=== PATIENT | male | born 1960 | race Caucasian/White ===

== ENCOUNTER → 2019-05-09 11:00 | Outpatient (CLI) | payer MEDICARE, MEDICAID, SELFPAY ==
--- NOTE | 2019-05-09 11:06 | XR_ITS ---
PROCEDURE: XR CHEST 2V CLINICAL HISTORY: r/o tb Evaluate for tuberculosis COMPARISON: No exams were available for comparison FINDINGS: The cardiomediastinal silhouette and pulmonary vascularity are within normal limits.There are mild atelectatic changes in the right lung base with mildly elevated right hemidiaphragm. No cavitating process.Patchy density is also present in the left lung base. No acute bony findings. IMPRESSION: Bibasilar atelectatic changes otherwise negative Dictated by: Jaime Betancourt MD 05/09/2019 11:35 Signed by: <Electronically signed by Jaime Betancourt MD in [place]> 05/09/2019 11:35
== END ==
PROVIDERS: PCP Emergency Medicine; Visit Provider Nurse Practitioner Family
DX: R76.11 Nonspecific reaction to tuberculin skin test without active tuberculosis (principal)
CPT/HCPCS: 71046

== ENCOUNTER 2020-03-02 17:46 | Inpatient (IN) | payer MEDICARE, BC, SELFPAY ==
[2020-03-02] VITALS (8 sets, daily range): BP systolic 138–166; BP diastolic 95–107; PULSE 80–116; RESP 16–24; TEMP 37.7; O2SAT 87–96; BMI 35.9
--- NOTE | 2020-03-02 17:52 | XR_ITS ---
PROCEDURE: XR CHEST PORTABLE CLINICAL HISTORY: soa Shortness of air with fever COMPARISON: XR CHEST 2V from 05/09/2019 FINDINGS: The cardiomediastinal silhouette and pulmonary vascularity are within normal limits. There are atelectatic changes in the right lower lobe. There is overall increased density of the left lung compared to the right which is in part felt to be related to technique. No acute bony abnormalities. IMPRESSION: Right lower lobe atelectasis Dictated by: Jaime Betancourt MD 03/02/2020 19:21 Electronically signed by Jaime Betancourt MD in [place] 03/02/2020 19:21
[2020-03-02 18:00] LABS: Basophils % 0.3 % (0.1-2.0); Eosinophils # 0.1 K/mm3 (0.0-0.4); Eosinophils % 2.2 % (0.1-12.0); Hematocrit 45.5 % (42.0-52.0); Hemoglobin 15.7 g/dL (14.1-18.0); Lymphocytes # 1.2 K/mm3 (0.7-4.5); Lymphocytes % 22.5 % (10-50); Mean Corpuscular HGB Conc 34.6 g/dL (31.8-35.4); Mean Corpuscular Hemoglobin 31.9 pg (27.0-31.2); Mean Corpuscular Volume 92.1 fl (80-94); Mean Platelet Volume 7.8 fl (7.4-10.4); Monocytes # 0.2 K/mm3 (0.1-1.0); Monocytes % 4.4 % (1.7-9.3); Neutrophils # 3.8 K/mm3 (1.8-7.8); Neutrophils % 70.6 % (37.0-80.0); Platelet Count 138 K/mm3 (142-424); Red Blood Count 4.94 M/mm3 (4.60-6.20); Red Cell Distribution Width 13.7 % (11.5-17.5); White Blood Count 5.3 K/mm3 (4.8-10.8)
[2020-03-02 18:01] LABS: ABG Base Excess 3.9 mmol/L (-2.4-2.3); ABG HCO3 28.7 mmhg (22.0-26.0); ABG Oxygen Saturation 90 % (90-100); ABG PCO2 46.8 mmhg (35.0-45.0); ABG PH 7.41 mmol/L (7.35-7.45); ABG PO2 57.4 mmhg (80-100); ABG TCO2 30.1 mmhg (23-27)
[2020-03-02 18:03] LABS: Allen's Test ACCEPTABLE; Oxygen RA %; Source Right Radial
[2020-03-02 18:10] LABS: Chloride 95 mmol/L (98-107); Potassium 3.7 mmoL/L (3.5-5.1); Sodium 136 mmol/L (136-145)
[2020-03-02 18:12] LABS: Blood Urea Nitrogen 10 mg/dl (9-20); Creatinine Clearance Estimated 207 mL/min (50-200); Estimated Glomerular Filt Rate 116 ml/min (>60); GFR (African American) 140 ML/MIN (>60)
[2020-03-02 18:13] LABS: Alanine Aminotransferase 57 U/L (12-78); Albumin Level 3.9 g/dl (3.5-5.0); Albumin/Globulin Ratio 1.2 (1.1-1.8); Alkaline Phosphatase 109 U/L (38-126); Anion Gap 9.7 mEq/L (5-15); Aspartate Amino Transferase 78 U/L (17-59); Bilirubin,Total 0.7 mg/dl (0.2-1.3); Calcium 8.8 mg/dl (8.4-10.2); Carbon Dioxide 35 mmol/L (22.0-30.0); Globulin 3.3 g/dL (1.3-3.2); Glucose 239 mg/dl (74-100); Total Protein,Serum 7.2 g/dl (6.3-8.2)
[2020-03-02 18:15] LABS: Lactic Acid 2.4 mmol/L (0.7-2.1)
--- NOTE | 2020-03-02 18:18 | PC.NURSE ---
notified for pt meeting criteria for severe sepsis, stated to page pharmacy for dosing of vanc and zosyn
--- NOTE | 2020-03-02 18:21 | PC.NURSE ---
Dosage given for vanc and zosyn, see mar
[2020-03-02 19:25] LABS: Coronavirus 19 IgG Antibody Negative (Negative); Coronavirus 19 IgM Antibody Negative (Negative)
[2020-03-02 19:40] LABS: Erythrocyte Sedimentation Rate 49 mm/hr (0-20)
--- NOTE | 2020-03-02 20:15 | HMH.EDGENADL ---
ED Disposition Clinical Impression: Pneumonia Qualifiers: Pneumonia type: due to unspecified organism Laterality: right Lung location: lower lobe of lung Qualified Code(s): J18.9 - Pneumonia, unspecified organism Disposition: Admitted As Inpatient Condition on Discharge: Fair Referrals: Abel Zamudio MD [Primary Care Provider] - - Critical Care Critical Care Time: No Attestation: On 03/02/20, the high probability of a clinically significant, sudden or life threatening deterioration of the following system(s) required my full and direct attention, intervention and personal management. The time I documented below is in addition to time spent performing reported procedures but includes the following listed in this critical care notation. Medical Decision Making - Dwaine Inquiry Pt receiving controlled substance: No Dwaine was queried for this patient: No Vital Signs: 03/02/20 17:46 Temperature 100 F H Temperature Source Oral Pulse Rate [Right] 116 H Respiratory Rate 24 Blood Pressure [Right Arm] 142/101 H Blood Pressure Mean [Right Arm] 114 02 Sat by Pulse Oximetry 87 L Oxygen Delivery Method Room Air - Lab Data Lab Results 03/02/20 17:50: WBC 5.3, RBC 4.94, Hgb 15.7, Hct 45.5, MCV 92.1, MCH 31.9 H, MCHC 34.6, RDW 13.7, Plt Count 138 L, MPV 7.8, Neut % (Auto) 70.6, Lymph % (Auto) 22.5, [place] % (Auto) 4.4, Eos % (Auto) 2.2, Baso % (Auto) 0.3, Neut # (Auto) 3.8, Lymph # (Auto) 1.2, [place] # (Auto) 0.2, Eos # (Auto) 0.1, Baso # (Auto) 0.0, ESR 49 H 03/02/20 17:50: Sodium 136, Potassium 3.7, Chloride 95 L, Carbon Dioxide 35 H, Anion Gap 9.7, BUN 10, Creatinine 0.70, Estimated Creat Clear 207, Estimated GFR 116, Est GFR ( Amer) 140, Glucose 239 H, Calcium 8.8, Total Bilirubin 0.7, AST 78 H, ALT 57, Alkaline Phosphatase 109, C-Reactive Protein 46.0 H, Total Protein 7.2, Albumin 3.9, Globulin 3.3 H, Albumin/Globulin Ratio 1.2 03/02/20 17:50: Lactate 2.4 H 03/02/20 17:50: SARS-CoV-2 IgG Ab (Rapid) Negative, SARS-CoV-2 IgM Ab (Rapid) Negative 03/02/20 17:57: Specimen Source Right radial, O2 % Ra, ABG pH 7.41, ABG pCO2 46.8 H, ABG pO2 57.4 L, ABG HCO3 28.7 H, ABG Total CO2 30.1 H, ABG O2 Saturation 90, ABG Base Excess 3.9 H, Jaiem Test Acceptable Result diagrams: 03/02/20 17:50 03/02/20 17:50 Orders (Tests/Meds): ED MEDICATIONS Generic Name Dose Route Start Last Admin Trade Name Freq PRN Reason Stop Dose Admin Amlodipine Besylate 5 mg 03/03/20 09:00 Norvasc 5mg Tablet PO 04/02/20 08:59 DAILY KONRAD Aripiprazole 10 mg 03/04/20 09:00 Abilify 10mg Tablet PO 04/03/20 08:59 DAILY KONRAD Piperacillin Sod/Tazobactam 100 mls @ 200 mls/hr 03/02/20 18:45 03/02/20 18:37 Sod 4.5 gm/ Sodium Chloride IV 03/16/20 18:44 200 mls/hr Q6H KONRAD Administration Protocol Vancomycin HCl 2,500 mg/ 500 mls @ 125 mls/hr 03/02/20 18:34 03/02/20 18:30 Sodium Chloride IV 03/02/20 22:33 125 mls/hr ONCE ONE Administration Protocol Vancomycin HCl 2,000 mg/ 250 mls @ 125 mls/hr 03/03/20 06:00 Sodium Chloride IV 03/17/20 05:59 Q12 KONRAD Protocol ORDERS Category Date Time Status Respiratory Panel (COVID), PCR Stat Lab 03/02/20 20:14 Received Blood Culture Stat Micro 03/02/20 17:50 Received Medical Decision Narrative: In summary patient is a nontoxic appearing 60-year-old male presenting to the emergency department for evaluation of fever, and shortness of breath. Of note patient lives in a facility that has a high incidence of the novel coronavirus. Initial evaluation patient satting 87% on room air requiring 3 L O2 to maintain sats of 93%. Patient is tachycardic, febrile. Patient is code sepsis. Given this patient given IV fluids, as well as Vanco and Zosyn off the bat. [employer] work-up initiated including CBC, CMP, lactate, EKG, chest x-ray, ESR, CRP. Patient is EKG showed normal sinus rhythm, no ST elevation, depression, or QT prolongation was noted. X
[2020-03-02 20:16] LABS: Adenovirus,PCR Not Detected (NotDetected); Bordetella Pertussis Not Detected (NotDetected); Chlamydophila Pneumoniae, PCR Not Detected (NotDetected); Coronavirus 229E Not Detected (NotDetected); Coronavirus NL63 Not Detected (NotDetected); Coronavirus OC43 Not Detected (NotDetected); Coronovirus HKU1,PCR Not Detected (NotDetected); Human Metapneumovirus Not Detected (NotDetected); Influenza A, PCR Not Detected (NotDetected); Influenza AH1, 2009 Not Detected (NotDetected); Influenza AH1, PCR Not Detected (NotDetected); Influenza AH3,PCR Not Detected (NotDetected); Influenza B, PCR Not Detected (NotDetected); Mycoplasma Pneumoniae, PCR Not Detected (NotDected); Parainfluenza 1, PCR Not Detected (NotDetected); Parainfluenza 2, PCR Not Detected (NotDetected); Parainfluenza 3, PCR Not Detected (NotDetected); Parainfluenza 4, PCR Not Detected (NotDetected); Respiratory Syncytial Virus Not Detected (NotDetected); Rhinovirus/Enterovirus Not Detected (NotDetected)
[2020-03-02 21:56] LABS: Coronavirus 19, PCR Detected (NotDetected)
[2020-03-02 21:56] LABS: Reflex Lactic Add Lactic Reflex
--- NOTE | 2020-03-02 22:00 | PC.NURSE ---
was notified that this pt is positive for covid.. notified
--- NOTE | 2020-03-02 22:45 | PC.NURSE ---
call placed family for update
--- NOTE | 2020-03-02 22:55 | PC.NURSE ---
Report received from Shyla STILL in ER @ [phone]. Call placed to warehouse helper. Waiting on warehouse helper of floor staff to let this RN leave unit to get pt.
[2020-03-02 22:56] LABS: Lactic Acid Follow Up (RFLX 1) 2.4 mmol/L (0.7-2.1)
--- NOTE | 2020-03-02 22:56 | HMH.HP ---
*Admission Date: 03/02/20 *Chief complaint: fever *History of present illness: this wm sent from local intermediate with fever and exposure to covid - had prev neg testing - pt with weakness and dec po intake - he was seen in the ed Patient is a 60-year-old male who denies any past medical history, who presents to the emergency department for evaluation of fever, and shortness of breath. Patient symptoms started yesterday with a fever of 102 degrees. Patient was noted to be hypoxic in his facility and started on oxygen. Patient has no history of COPD or CHF and has never needed oxygen before. Patient denies nausea, vomiting, chest pain, abdominal pain, or dysuria at this time. pt was admitted with covid-19 resp illness [facility] History I have reviewed the patient's past medical history: Yes *Have you ever received a pneumonia vaccine?: No *Have you received a flu vaccine this season?: Yes - *Social History Alcohol Intake: never *Occupational Status:: disabled *Travel in the last 8 weeks: None Family Hx:: No significant family history Review of Systems - Review of Systems Review of systems:: pertinent systems reviewed and negative unless documented below - Constitutional Reports fever(s), Reports weakness - Eyes Denies change in vision - ENT Reports dizziness, Reports dry mouth, Denies sore throat - *Cardiovascular Reports shortness of breath, Denies chest pain - *Respiratory Reports cough, Denies coughing up blood - *Gastrointestinal Denies abdominal pain, Denies vomiting - *Genitourinary Denies blood in urine - *Musculoskeletal Denies joint pain, Denies neck pain - Integumentary/Breasts Denies rash - *Neurologic Reports dizziness, Denies headache(s), Denies tingling/numbness/burning sensations, Denies seizure-like activity - Psychiatric Reports anxiety Meds Home Medications Medication Instructions Recorded Confirmed Type acetaminophen 500 mg tablet 1,000 mg PO Q6H PRN tab 02/22/19 03/02/20 History amlodipine 5 mg tablet 5 mg PO DAILY 02/22/19 03/02/20 History aripiprazole 10 mg tablet 10 mg PO DAILY 02/22/19 03/02/20 History divalproex 250 mg tablet,delayed 750 mg PO BID tab 02/22/19 03/02/20 History release ibuprofen 800 mg tablet 800 mg PO TID 02/22/19 03/02/20 History magnesium oxide 400 mg PO QHS cap 02/22/19 03/02/20 History multivitamin,tx-minerals 1 tab PO DAILY 02/22/19 03/02/20 History Cholecalciferol (Vitamin D3) 1,000 unit PO DAILY 03/02/20 03/02/20 History [Vitamin D3 1,000 Unit Tab] buPROPion HCL [Bupropion Xl] 150 mg PO DAILY 03/02/20 03/02/20 History Allergies Allergy/AdvReac Type Severity Reaction Status Date / Time chlorpromazine Allergy Unknown Verified 02/22/19 13:10 [From Thorazine] Exam Vital signs and Labs for Last 24 Hours: Temp Pulse Resp BP Pulse Ox 100 F H 116 H 24 142/101 H 87 L 03/02/20 17:46 03/02/20 17:46 03/02/20 17:46 03/02/20 17:46 03/02/20 17:46 Laboratory Results - last 24 hr 03/02/20 17:50: WBC 5.3, RBC 4.94, Hgb 15.7, Hct 45.5, MCV 92.1, MCH 31.9 H, MCHC 34.6, RDW 13.7, Plt Count 138 L, MPV 7.8, Neut % (Auto) 70.6, Lymph % (Auto) 22.5, [place] % (Auto) 4.4, Eos % (Auto) 2.2, Baso % (Auto) 0.3, Neut # (Auto) 3.8, Lymph # (Auto) 1.2, [place] # (Auto) 0.2, Eos # (Auto) 0.1, Baso # (Auto) 0.0, ESR 49 H 03/02/20 17:50: Sodium 136, Potassium 3.7, Chloride 95 L, Carbon Dioxide 35 H, Anion Gap 9.7, BUN 10, Creatinine 0.70, Estimated Creat Clear 207, Estimated GFR 116, Est GFR ( Amer) 140, Glucose 239 H, Calcium 8.8, Total Bilirubin 0.7, AST 78 H, ALT 57, Alkaline Phosphatase 109, C-Reactive Protein 46.0 H, Total Protein 7.2, Albumin 3.9, Globulin 3.3 H, Albumin/Globulin Ratio 1.2 03/02/20 17:50: Lactate 2.4 H 03/02/20 17:50: SARS-CoV-2 IgG Ab (Rapid) Negative, SARS-CoV-2 IgM Ab (Rapid) Negative 03/02/20 17:57: Specimen Source Right radial, O2 % Ra, ABG pH 7.41, ABG pCO2 46.8 H, ABG pO2 57.4 L, ABG HCO3 28.7 H, ABG Total CO2 30.1 H, A
--- NOTE | 2020-03-02 23:35 | PC.NURSE ---
waiting on transport to scu. 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
[2020-03-03] VITALS (9 sets, daily range): BP systolic 108–149; BP diastolic 65–109; PULSE 83–127; RESP 16–22; TEMP 36.4–38.7; O2SAT 90–96; BMI 43.5; BMI 43.4
[2020-03-03 00:20] LABS: Reflex Lactic (2 hrs) Add Lactic Reflex
[2020-03-03 00:55] LABS: Lactic Acid Follow up (RFLX 2) 1.9 mmol/L (0.7-2.1)
--- NOTE | 2020-03-03 01:09 | PC.NURSE ---
Deanne Gresham RN from ER brought pt to SCU via wheelchair at 0015.
--- NOTE | 2020-03-03 03:32 | PC.NURSE ---
Pt A&Ox4. pt is a new admit this shift. Has diminished lung bases. Pt is on 3L@NC. O2 sats between 88-92%while sleeping. 85-95% awake. pt has been tachy 110-120 remains afebrile Pt has no complaints of pain. Pt voiding per urinal. Pt has 20G RAC infusing LR @ 50 ml/hr. Also 20G LFA SL. Pt resting comfortably.
--- NOTE | 2020-03-03 06:00 | XR_ITS ---
PROCEDURE: XR CHEST PORTABLE CLINICAL HISTORY: hypoxia COMPARISON: XR CHEST 2V from 05/09/2019 XR CHEST PORTABLE from 03/02/2020 FINDINGS: The cardiomediastinal silhouette and pulmonary vascularity are within normal limits. There are low lung volumes with persistent consolidation in the right lung base. Upper lobes are clear. The consolidation in the right lung base may be slightly worse No acute bony abnormalities. IMPRESSION: Poor inspiration with low lung volumes and slight worsening right lower lobe infiltrate and/or atelectasis Dictated by: Jaime Betancourt MD 03/03/2020 07:24 Electronically signed by Jaime Betancourt MD in [place] 03/03/2020 07:24
--- NOTE | 2020-03-03 07:27 | HMH.PHAVTE ---
[facility] Pharmacy VTE Monitoring - Patient Demographics Admission date: 03/02/20 Report Date: 03/03/20 Time: 07:27 Allergies/Adverse Reactions: Patient Allergies chlorpromazine [From Thorazine] Allergy (Unknown, Verified 02/22/19 13:10) Height: 1.78 m Weight: 137.665 kg Patient Problems: Current Active Problems Pneumonia (Acute) COVID-19 virus infection (Acute) Schizoaffective disorder (Acute) Obesity (Acute) HTN (hypertension) (Acute) SIRS (systemic inflammatory response syndrome) (Acute) Elevated C-reactive protein (CRP) (Acute) Respiratory failure with hypoxia and hypercapnia (Acute) Thrombocytopenia (Acute) - VTE Risk Labs: VTE Related Lab Results Hgb 15.7 g/dL (14.1-18.0) 03/02/20 17:50 Hct 45.5 % (42.0-52.0) 03/02/20 17:50 Plt Count 138 K/mm3 (142-424) L 03/02/20 17:50 BUN 10 mg/dl (9-20) 03/02/20 17:50 Creatinine 0.70 mg/dl (0.66-1.25) 03/02/20 17:50 Estimated Creat Clear 207 mL/min (50-200) 03/02/20 17:50 Was VTE Risk Assessment Performed: Yes VTE Score: 3 VTE Risk Level: Low Risk Clinical Trial Participant: No - Prophylaxis VTE Prophylaxis Ordered?: Yes Types of VTE Prophylaxis: TEDS Knee High, Pharmacological Pharmacologic Type: Enoxaparin
--- NOTE | 2020-03-03 07:33 | HMH.PHAINT ---
HOME MEDICATION RECONCILIATION COMPLETED USING LIST FROM [facility]
[2020-03-03 07:40] LABS: Eosinophils # 0.1 K/mm3 (0.0-0.4); Neutrophils # 3.8 K/mm3 (1.8-7.8); White Blood Count 5.3 K/mm3 (4.8-10.8)
[2020-03-03 07:43] LABS: Chloride 96 mmol/L (98-107); Sodium 134 mmol/L (136-145)
[2020-03-03 07:45] LABS: Basophils % 0.4 % (0.1-2.0); Hemoglobin 13.5 g/dL (14.1-18.0); Lymphocytes # 1.1 K/mm3 (0.7-4.5); Lymphocytes % 20.2 % (10-50); Mean Corpuscular HGB Conc 33.8 g/dL (31.8-35.4); Mean Corpuscular Hemoglobin 31.2 pg (27.0-31.2); Mean Corpuscular Volume 92.4 fl (80-94); Mean Platelet Volume 8.7 fl (7.4-10.4); Monocytes # 0.3 K/mm3 (0.1-1.0); Monocytes % 6.4 % (1.7-9.3); Neutrophils % 71.9 % (37.0-80.0); Platelet Count 124 K/mm3 (142-424); Red Blood Count 4.34 M/mm3 (4.60-6.20)
[2020-03-03 07:46] LABS: Blood Urea Nitrogen 10 mg/dl (9-20); Carbon Dioxide 35 mmol/L (22.0-30.0); Creatinine Clearance Estimated 104 mL/min (50-200); Estimated Glomerular Filt Rate 99 ml/min (>60); GFR (African American) 120 ML/MIN (>60); Glucose 181 mg/dl (74-100)
[2020-03-03 07:56] LABS: Calcium 7.9 mg/dl (8.4-10.2)
--- NOTE | 2020-03-03 10:02 | HMH.PHACONS ---
- Pharmacy Consult Date: 03/03/20 Time: 10:02 Referring provider: DR. OTOOLE Reason for Consult:: VANCOMYCIN DOSING Allergies and ADEs:: Allergies Allergy/AdvReac Type Severity Reaction Status Date / Time chlorpromazine Allergy Unknown Verified 02/22/19 13:10 [From Thorazine] Home Medications:: Home Medications Medication Instructions Recorded Confirmed Type acetaminophen 500 mg tablet 1,000 mg PO Q6H PRN tab 02/22/19 03/02/20 History amlodipine 5 mg tablet 5 mg PO DAILY 02/22/19 03/02/20 History aripiprazole 10 mg tablet 10 mg PO DAILY 02/22/19 03/02/20 History divalproex 250 mg tablet,delayed 750 mg PO BID tab 02/22/19 03/02/20 History release ibuprofen 800 mg tablet 800 mg PO TID 02/22/19 03/02/20 History magnesium oxide 400 mg PO BID cap 02/22/19 03/03/20 History multivitamin,tx-minerals 1 tab PO DAILY 02/22/19 03/02/20 History Cholecalciferol (Vitamin D3) 1,000 unit PO DAILY 03/02/20 03/02/20 History [Vitamin D3 1,000 Unit Tab] buPROPion HCL [Bupropion Xl] 150 mg PO DAILY 03/02/20 03/02/20 History Height: 1.78 m Weight: 137.665 kg Laboratory Results:: Laboratory Results - last 24 hr 03/02/20 17:50: WBC 5.3, RBC 4.94, Hgb 15.7, Hct 45.5, MCV 92.1, MCH 31.9 H, MCHC 34.6, RDW 13.7, Plt Count 138 L, MPV 7.8, Neut % (Auto) 70.6, Lymph % (Auto) 22.5, [place] % (Auto) 4.4, Eos % (Auto) 2.2, Baso % (Auto) 0.3, Neut # (Auto) 3.8, Lymph # (Auto) 1.2, [place] # (Auto) 0.2, Eos # (Auto) 0.1, Baso # (Auto) 0.0, ESR 49 H 03/02/20 17:50: Sodium 136, Potassium 3.7, Chloride 95 L, Carbon Dioxide 35 H, Anion Gap 9.7, BUN 10, Creatinine 0.70, Estimated Creat Clear 207, Estimated GFR 116, Est GFR ( Amer) 140, Glucose 239 H, Calcium 8.8, Total Bilirubin 0.7, AST 78 H, ALT 57, Alkaline Phosphatase 109, C-Reactive Protein 46.0 H, Total Protein 7.2, Albumin 3.9, Globulin 3.3 H, Albumin/Globulin Ratio 1.2 03/02/20 17:50: Lactate 2.4 H 03/02/20 17:50: SARS-CoV-2 IgG Ab (Rapid) Negative, SARS-CoV-2 IgM Ab (Rapid) Negative 03/02/20 17:57: Specimen Source Right radial, O2 % Ra, ABG pH 7.41, ABG pCO2 46.8 H, ABG pO2 57.4 L, ABG HCO3 28.7 H, ABG Total CO2 30.1 H, ABG O2 Saturation 90, ABG Base Excess 3.9 H, Jaime Test Acceptable 03/02/20 20:14: Chlamy pneumoniae PCR Not detected, Adenovirus (PCR) Not detected, B. pertussis DNA (PCR) Not detected, Coronavirus OC43 (PCR) Not detected, Coronavirus HKU1 (PCR) Not detected, Coronavirus 229E (PCR) Not detected, COVID-19 PCR Detected A, Coronavirus NL63 (PCR) Not detected, Human Metapneumovir PCR Not detected, Influenza A (H1) PCR Not detected, Influ A (H1N1/09) PCR Not detected, Influenza A (H3) PCR Not detected, Influenza Type A (PCR) Not detected, Influenza Type B (PCR) Not detected, M. pneumoniae (PCR) Not detected, Parainfluenza 1 (PCR) Not detected, Parainfluenza 2 (PCR) Not detected, Parainfluenza 3 (PCR) Not detected, Parainfluenza 4 (PCR) Not detected, RSV (PCR) Not detected, Entero/Rhino (PCR) Not detected 03/02/20 22:15: Lactate 2.4 H 03/03/20 00:31: Lactate 1.9 03/03/20 05:04: WBC 5.3, RBC 4.34 L, Hgb 13.5 L D, Hct 40.0 L, MCV 92.4, MCH 31.2, MCHC 33.8, RDW 14.0, Plt Count 124 L, MPV 8.7, Neut % (Auto) 71.9, Lymph % (Auto) 20.2, [place] % (Auto) 6.4, Eos % (Auto) 1.0, Baso % (Auto) 0.4, Neut # (Auto) 3.8, Lymph # (Auto) 1.1, [place] # (Auto) 0.3, Eos # (Auto) 0.1, Baso # (Auto) 0.0 03/03/20 05:04: Sodium 134 L, Potassium 4.0, Chloride 96 L, Carbon Dioxide 35 H, Anion Gap 7.0, BUN 10, Creatinine 0.80, Estimated Creat Clear 104, Estimated GFR 99, Est GFR ( Amer) 120, Glucose 181 H D, Calcium 7.9 L D Medical History: Reports:: Hypertension Denies:: Cancer, Diabetes Mellitus Type 1, Diabetes Mellitus Type 2, Internal Pacemaker Assessment and Plan (1) COVID-19 virus infection Current visit: Yes Status: Acute Category: Medical Code(s): U07.1 - COVID-19 (2) Schizoaffective disorder Current visit: Yes Status: Acute Qualifiers: Schizoaffective disorder type: unspecified Q
--- NOTE | 2020-03-03 12:03 | HMH.ACPN2 ---
Internal Medicine - PN: Subj *Date: 03/03/20 *Time: 08:15 Interval history: 60 YOM i bed resp easy/even oxygen saturation 94% on 3 L per nasal cannula. He denies any concerns/needs at this time Exam Vital signs and Labs for Last 24 Hours: Temp Pulse Resp BP Pulse Ox 99.6 F 111 H 22 144/93 H 93 L 03/03/20 04:00 03/03/20 04:00 03/03/20 04:00 03/03/20 04:00 03/03/20 04:00 Laboratory Results - last 24 hr 03/02/20 17:50: WBC 5.3, RBC 4.94, Hgb 15.7, Hct 45.5, MCV 92.1, MCH 31.9 H, MCHC 34.6, RDW 13.7, Plt Count 138 L, MPV 7.8, Neut % (Auto) 70.6, Lymph % (Auto) 22.5, [place] % (Auto) 4.4, Eos % (Auto) 2.2, Baso % (Auto) 0.3, Neut # (Auto) 3.8, Lymph # (Auto) 1.2, [place] # (Auto) 0.2, Eos # (Auto) 0.1, Baso # (Auto) 0.0, ESR 49 H 03/02/20 17:50: Sodium 136, Potassium 3.7, Chloride 95 L, Carbon Dioxide 35 H, Anion Gap 9.7, BUN 10, Creatinine 0.70, Estimated Creat Clear 207, Estimated GFR 116, Est GFR ( Amer) 140, Glucose 239 H, Calcium 8.8, Total Bilirubin 0.7, AST 78 H, ALT 57, Alkaline Phosphatase 109, C-Reactive Protein 46.0 H, Total Protein 7.2, Albumin 3.9, Globulin 3.3 H, Albumin/Globulin Ratio 1.2 03/02/20 17:50: Lactate 2.4 H 03/02/20 17:50: SARS-CoV-2 IgG Ab (Rapid) Negative, SARS-CoV-2 IgM Ab (Rapid) Negative 03/02/20 17:57: Specimen Source Right radial, O2 % Ra, ABG pH 7.41, ABG pCO2 46.8 H, ABG pO2 57.4 L, ABG HCO3 28.7 H, ABG Total CO2 30.1 H, ABG O2 Saturation 90, ABG Base Excess 3.9 H, Jaime Test Acceptable 03/02/20 20:14: Chlamy pneumoniae PCR Not detected, Adenovirus (PCR) Not detected, B. pertussis DNA (PCR) Not detected, Coronavirus OC43 (PCR) Not detected, Coronavirus HKU1 (PCR) Not detected, Coronavirus 229E (PCR) Not detected, COVID-19 PCR Detected A, Coronavirus NL63 (PCR) Not detected, Human Metapneumovir PCR Not detected, Influenza A (H1) PCR Not detected, Influ A (H1N1/09) PCR Not detected, Influenza A (H3) PCR Not detected, Influenza Type A (PCR) Not detected, Influenza Type B (PCR) Not detected, M. pneumoniae (PCR) Not detected, Parainfluenza 1 (PCR) Not detected, Parainfluenza 2 (PCR) Not detected, Parainfluenza 3 (PCR) Not detected, Parainfluenza 4 (PCR) Not detected, RSV (PCR) Not detected, Entero/Rhino (PCR) Not detected 03/02/20 22:15: Lactate 2.4 H 03/03/20 00:31: Lactate 1.9 03/03/20 05:04: WBC 5.3, RBC 4.34 L, Hgb 13.5 L D, Hct 40.0 L, MCV 92.4, MCH 31.2, MCHC 33.8, RDW 14.0, Plt Count 124 L, MPV 8.7, Neut % (Auto) 71.9, Lymph % (Auto) 20.2, [place] % (Auto) 6.4, Eos % (Auto) 1.0, Baso % (Auto) 0.4, Neut # (Auto) 3.8, Lymph # (Auto) 1.1, [place] # (Auto) 0.3, Eos # (Auto) 0.1, Baso # (Auto) 0.0 03/03/20 05:04: Sodium 134 L, Potassium 4.0, Chloride 96 L, Carbon Dioxide 35 H, Anion Gap 7.0, BUN 10, Creatinine 0.80, Estimated Creat Clear 104, Estimated GFR 99, Est GFR ( Amer) 120, Glucose 181 H D, Calcium 7.9 L D I & O for Last 24 hours: Intake & Output 02/29/20 03/01/20 03/02/20 03/03/20 23:59 23:59 23:59 23:59 Intake Total 3597 / 3597 Output Total 150 / 150 Balance 3447 / 3447 Weight 280 lb 303 lb 8 oz - Constitutional no acute distress, obese - *Routine HEENT Exam Head: Present: normocephalic ENT: Present: mucous membranes moist. Absent: sinus tenderness - *Routine Neck Exam Present: full ROM, trachea midline. Absent: JVD, tracheal deviation - *Routine Respiratory Exam Present: decreased breath sounds. Absent: accessory muscle use - *Routine Cardiovascular Exam Present: RRR, murmur - *Routine Abdominal Exam Present: soft, normoactive bowel sounds, obese. Absent: tenderness - *Routine Skin Exam Present: intact, warm. Absent: cyanosis, jaundice - *Routine Neurological Exam Present: alert, oriented X3 - Routine Psychiatric Exam Present: normal affect Assessment and Plan (1) COVID-19 virus infection Current visit: Yes Status: Acute Category: Medical Code(s): U07.1 - COVID-19 (2) Schizoaffective disorder Current visit: Yes Status: Acute
--- NOTE | 2020-03-03 15:04 | PC.NURSE ---
PATIENT A&O X4, LUNGS DIMINISHED WITH EXPIRATORY RHONCHI, PULSES EQUAL. PATIENT IS IMPULSIVE WHEN NEEDING TO USE THE URINAL. THIS RN HAS EDUCATED PATIENT IN REGARDS TO SAFETY TO USE CALL LIGHT FOR ASSISTANCE. PATIENT VERBALIZED AN UNDERSTANDING BUT CONTINUES TO GET OUT OF BED TO USE URINAL. PATIENT IS UNSTEADY ON HIS FEET. THIS RN PERFORMED A BED BATH ON PATIENT. LINENS CHANGED, NEW GOWN, ORAL CARE PROVIDED. NO OTHER NEEDS AT THIS TIME.
--- NOTE | 2020-03-03 20:21 | PC.NURSE ---
nurse was made aware of blood pressure and temperature
[2020-03-04] VITALS (8 sets, daily range): BP systolic 99–143; BP diastolic 69–91; PULSE 88–112; RESP 18–22; TEMP 36.6–37.8; O2SAT 85–97; BMI 43.1
--- NOTE | 2020-03-04 04:32 | PC.NURSE ---
Pt is A&Ox3 and has ambulated to the BSC and to the side of the bed 3x this shift and tolerated fair d/t SOA with exertion. Pt continues on 1L of O2 per NC with sats 91-94% while awake and 89-91% during sleep. Room air sat obtained this am of 85%. Diminished lungs sounds noted t/o. Pt has had an occasional dry cough. Pt has denied any pain or N/V/D t/o shift. ABD is soft, large, non-tender with active BS. Pt has 1 episode of loose stool on previous shift. Lovenox for VTE. Pt was febrile t/o most of the shift with T-max of 101.6; new orders from Dr. Billy for Ibuprofen. Temp decreased and is currently 98.2. Pt has been tachycardic t/o shift, HR reached as high as 125 but this was noted during ambulation. with temp decreased, HR currently 94 and pt resting quietly in bed. Pt has continues to have urinary incontinence. Pt reports difficulty uses the urinal. Pt encouraged to use the BS however pt continues to urinate in the floor. Pt has been given a partial bath and linen change. Call light within reach, will continue to monitor.
[2020-03-04 04:34] LABS: Basophils % 0.8 % (0.1-2.0); Eosinophils % 0.7 % (0.1-12.0); Hematocrit 40.6 % (42.0-52.0); Hemoglobin 13.6 g/dL (14.1-18.0); Lymphocytes # 1.2 K/mm3 (0.7-4.5); Lymphocytes % 24.8 % (10-50); Mean Corpuscular HGB Conc 33.6 g/dL (31.8-35.4); Mean Corpuscular Hemoglobin 31.4 pg (27.0-31.2); Mean Corpuscular Volume 93.5 fl (80-94); Mean Platelet Volume 8.2 fl (7.4-10.4); Monocytes # 0.3 K/mm3 (0.1-1.0); Monocytes % 5.9 % (1.7-9.3); Neutrophils # 3.2 K/mm3 (1.8-7.8); Neutrophils % 67.9 % (37.0-80.0); Platelet Count 116 K/mm3 (142-424); Red Blood Count 4.34 M/mm3 (4.60-6.20); Red Cell Distribution Width 13.7 % (11.5-17.5); White Blood Count 4.7 K/mm3 (4.8-10.8)
[2020-03-04 04:37] LABS: Chloride 98 mmol/L (98-107); Potassium 3.7 mmoL/L (3.5-5.1); Sodium 139 mmol/L (136-145)
[2020-03-04 04:40] LABS: Blood Urea Nitrogen 10 mg/dl (9-20); Creatinine Clearance Estimated 76 mL/min (50-200); Estimated Glomerular Filt Rate 69 ml/min (>60); GFR (African American) 83 ML/MIN (>60)
[2020-03-04 04:41] LABS: Anion Gap 7.7 mEq/L (5-15); Calcium 7.9 mg/dl (8.4-10.2); Carbon Dioxide 37 mmol/L (22.0-30.0); Glucose 154 mg/dl (74-100)
[2020-03-04 04:59] LABS: Vancomycin,Trough 12.1 ug/mL (5.0-10.0)
--- NOTE | 2020-03-04 04:59 | PC.NURSE ---
Pt's o2 while asleep has decreased to 84%, o2 increased to 2L per NC. Pt also awakened and completely pulmonary toilet. Sat currently at 90% on 2L
--- NOTE | 2020-03-04 08:41 | HMH.ACPN2 ---
Internal Medicine - PN: Subj *Date: 03/04/20 *Time: 08:50 Interval history: 82-year-old male patient lying in bed resting quietly respirations easy even, denies any chest pain or shortness of breath. Currently oxygen saturations 93% on 2 L per nasal cannula Exam Vital signs and Labs for Last 24 Hours: Temp Pulse Resp BP Pulse Ox 98.2 F 96 H 20 99/69 L 94 L 03/04/20 03:44 03/04/20 03:44 03/04/20 03:44 03/04/20 03:44 03/04/20 08:00 Laboratory Results - last 24 hr 03/04/20 04:10: WBC 4.7 L, RBC 4.34 L, Hgb 13.6 L, Hct 40.6 L, MCV 93.5, MCH 31.4 H, MCHC 33.6, RDW 13.7, Plt Count 116 L, MPV 8.2, Neut % (Auto) 67.9, Lymph % (Auto) 24.8, [place] % (Auto) 5.9, Eos % (Auto) 0.7, Baso % (Auto) 0.8, Neut # (Auto) 3.2, Lymph # (Auto) 1.2, [place] # (Auto) 0.3, Eos # (Auto) 0.0, Baso # (Auto) 0.0 03/04/20 04:10: Sodium 139, Potassium 3.7, Chloride 98, Carbon Dioxide 37 H, Anion Gap 7.7, BUN 10, Creatinine 1.10 D, Estimated Creat Clear 76, Estimated GFR 69, Est GFR ( Amer) 83 D, Glucose 154 H, Calcium 7.9 L 03/04/20 04:10: Vancomycin Trough 12.1 H I & O for Last 24 hours: Intake & Output 03/01/20 03/02/20 03/03/20 03/04/20 23:59 23:59 23:59 23:59 Intake Total 4722 / 4722 Output Total 1500 / 1500 250 / 250 Balance 3222 / 3222 -250 / -250 Weight 280 lb 303 lb 7.99 oz 301 lb 6 oz - Constitutional no acute distress - *Routine HEENT Exam Head: Present: normocephalic Eye: Present: EOMI ENT: Present: mucous membranes moist. Absent: sinus tenderness - *Routine Neck Exam Present: full ROM, trachea midline. Absent: JVD, tracheal deviation - *Routine Respiratory Exam Present: decreased breath sounds. Absent: accessory muscle use - *Routine Cardiovascular Exam Present: RRR, murmur - *Routine Abdominal Exam Present: soft, normoactive bowel sounds. Absent: tenderness - *Routine Extremities Exam Present: full ROM, pulses intact. Absent: calf tenderness - *Routine Skin Exam Present: intact, warm. Absent: jaundice - *Routine Neurological Exam Present: alert - Routine Psychiatric Exam Present: normal affect Assessment and Plan (1) COVID-19 virus infection Current visit: Yes Status: Acute Category: Medical Code(s): U07.1 - COVID-19 (2) Schizoaffective disorder Current visit: Yes Status: Acute Qualifiers: Schizoaffective disorder type: unspecified Qualified Code(s): F25.9 - Schizoaffective disorder, unspecified Category: Medical Code(s): F25.9 - Schizoaffective disorder, unspecified (3) Obesity Current visit: Yes Status: Acute Qualifiers: Obesity type: due to excess calories Obesity classification: adult class 3 (BMI >= 40) Serious obesity comorbidity presence: with serious comorbidity Body mass index: BMI 40.0-44.9 Qualified Code(s): E66.01 - Morbid (severe) obesity due to excess calories; Z68.41 - Body mass index (BMI) 40.0-44.9, adult Category: Medical Code(s): E66.9 - Obesity, unspecified (4) HTN (hypertension) Current visit: Yes Status: Acute Qualifiers: Hypertension type: essential hypertension Qualified Code(s): I10 - Essential (primary) hypertension Category: Medical Code(s): I10 - Essential (primary) hypertension (5) SIRS (systemic inflammatory response syndrome) Current visit: Yes Status: Acute Category: Medical Code(s): R65.10 - Systemic inflammatory response syndrome (SIRS) of non-infectious origin without acute organ dysfunction (6) Elevated C-reactive protein (CRP) Current visit: Yes Status: Acute Category: Medical Code(s): R79.82 - Elevated C-reactive protein (CRP) (7) Respiratory failure with hypoxia and hypercapnia Current visit: Yes Status: Acute Category: Medical Code(s): J96.91 - Respiratory failure, unspecified with hypoxia; J96.92 - Respiratory failure, unspecified with hypercapnia (8) Thrombocytopenia Current visit: Yes Status: Acute Category: Medical Code(s): D6
--- NOTE | 2020-03-04 14:21 | PC.NURSE ---
PT UNABLE TO PRODUCE SPUTUM SAMPLE FOR LAB AT THIS TIME
--- NOTE | 2020-03-04 18:14 | PC.NURSE ---
ALERT AND ORIENTED X3. O2 SAT CONTINUE TO BE 90-92% ON 1.5LNC. NO DISTRESS NOTED. VSS. PT DENIES PAIN AND NO COMPLAINTS VOICED. PT USES BSC INDEPENDENTLY AND HAS SPENT MOST OF SHIFT RESTING IN BED. SAFETY MEASURES IN PLACE, WILL CONTINUE TO MONITOR. PT REMAINS IN NEGATIVE PRESSURE ROOM AND ON CONTACT/AIR[place]/EYEPROTECTION PRECAUTIONS ALL SHIFT
--- NOTE | 2020-03-04 20:22 | PC.NURSE ---
He is A&Ox4. Continues on 1LPM n/c. Denies pain. Denies SOA. Is lying in bed watching television. Is in contact and airborne precautions.
[2020-03-05] VITALS (9 sets, daily range): BP systolic 108–163; BP diastolic 64–96; PULSE 76–112; RESP 20–32; TEMP 36.2–38.9; O2SAT 85–95; BMI 43.9
[2020-03-05 05:26] LABS: Chloride 95 mmol/L (98-107); Potassium 3.6 mmoL/L (3.5-5.1); Sodium 136 mmol/L (136-145)
[2020-03-05 05:29] LABS: Anion Gap 6.6 mEq/L (5-15); Blood Urea Nitrogen 12 mg/dl (9-20); Calcium 7.7 mg/dl (8.4-10.2); Carbon Dioxide 38 mmol/L (22.0-30.0); Creatinine Clearance Estimated 55 mL/min (50-200); Estimated Glomerular Filt Rate 48 ml/min (>60); GFR (African American) 58 ML/MIN (>60); Glucose 134 mg/dl (74-100)
[2020-03-05 06:06] LABS: Hematocrit 37.2 % (42.0-52.0); Hemoglobin 12.5 g/dL (14.1-18.0); Mean Corpuscular Volume 94.5 fl (80-94); Red Blood Count 3.94 M/mm3 (4.60-6.20); White Blood Count 4.8 K/mm3 (4.8-10.8)
[2020-03-05 06:07] LABS: Basophils # 0.1 K/mm3 (0-0.2); Basophils % 1.1 % (0.1-2.0); Eosinophils % 0.4 % (0.1-12.0); Lymphocytes # 0.9 K/mm3 (0.7-4.5); Lymphocytes % 19.2 % (10-50); Mean Corpuscular HGB Conc 33.7 g/dL (31.8-35.4); Mean Corpuscular Hemoglobin 31.8 pg (27.0-31.2); Mean Platelet Volume 7.6 fl (7.4-10.4); Monocytes # 0.3 K/mm3 (0.1-1.0); Monocytes % 5.2 % (1.7-9.3); Neutrophils # 3.5 K/mm3 (1.8-7.8); Neutrophils % 74.2 % (37.0-80.0); Platelet Count 133 K/mm3 (142-424); Red Cell Distribution Width 13.4 % (11.5-17.5)
--- NOTE | 2020-03-05 07:58 | HMH.ACPN2 ---
Internal Medicine - PN: Subj *Date: 03/05/20 *Time: 10:31 Interval history: 60-year-old male patient sitting up the side of bed, tolerating breakfast without any difficulties. Temperature this morning was 102.1, he is currently on 1 L per nasal cannula with oxygen saturations of 93%. We will start Remdisivir today Exam Vital signs and Labs for Last 24 Hours: Temp Pulse Resp BP Pulse Ox 100.0 F H 112 H 22 159/93 H 92 L 03/05/20 06:45 03/05/20 04:00 03/05/20 04:00 03/05/20 04:00 03/05/20 04:00 Laboratory Results - last 24 hr 03/05/20 04:34: WBC 4.8, RBC 3.94 L, Hgb 12.5 L, Hct 37.2 L, MCV 94.5 H, MCH 31.8 H, MCHC 33.7, RDW 13.4, Plt Count 133 L, MPV 7.6, Neut % (Auto) 74.2, Lymph % (Auto) 19.2, [place] % (Auto) 5.2, Eos % (Auto) 0.4, Baso % (Auto) 1.1, Neut # (Auto) 3.5, Lymph # (Auto) 0.9, [place] # (Auto) 0.3, Eos # (Auto) 0.0, Baso # (Auto) 0.1 03/05/20 04:34: Sodium 136, Potassium 3.6, Chloride 95 L, Carbon Dioxide 38 H, Anion Gap 6.6, BUN 12, Creatinine 1.50 H D, Estimated Creat Clear 55, Estimated GFR 48 L, Est GFR ( Amer) 58 L D, Glucose 134 H, Calcium 7.7 L I & O for Last 24 hours: Intake & Output 03/02/20 03/03/20 03/04/20 03/05/20 23:59 23:59 23:59 23:59 Intake Total 4722 / 4722 1810 / 1810 Output Total 1500 / 1500 250 / 250 200 / 200 Balance 3222 / 3222 1560 / 1560 -200 / -200 Weight 280 lb 303 lb 7.99 oz 301 lb 6 oz 306 lb 9 oz Microbiology Reports for the Last 24 Hours: Microbiology 03/02/20 17:50 Blood Blood Culture - Preliminary NO GROWTH AFTER 48 HOURS 03/02/20 17:50 Blood Blood Culture - Preliminary NO GROWTH AFTER 48 HOURS - Constitutional no acute distress - *Routine HEENT Exam ENT: Present: mucous membranes moist. Absent: sinus tenderness - *Routine Neck Exam Present: full ROM, trachea midline. Absent: JVD - *Routine Respiratory Exam Present: decreased breath sounds - *Routine Cardiovascular Exam Present: RRR, murmur - *Routine Abdominal Exam Present: soft, normoactive bowel sounds, obese. Absent: tenderness, firm - *Routine Extremities Exam Present: full ROM, pulses intact, calf tenderness - Routine Back/Spine/Pelvis Exam Back/Spine: Present: full ROM. Absent: CVA tenderness - *Routine Skin Exam Present: intact, dry, warm. Absent: cyanosis - *Routine Neurological Exam Present: alert - Routine Psychiatric Exam Present: normal affect Assessment and Plan (1) COVID-19 virus infection Current visit: Yes Status: Acute Category: Medical Code(s): U07.1 - COVID-19 (2) Schizoaffective disorder Current visit: Yes Status: Acute Qualifiers: Schizoaffective disorder type: unspecified Qualified Code(s): F25.9 - Schizoaffective disorder, unspecified Category: Medical Code(s): F25.9 - Schizoaffective disorder, unspecified (3) Obesity Current visit: Yes Status: Acute Qualifiers: Obesity type: due to excess calories Obesity classification: adult class 3 (BMI >= 40) Serious obesity comorbidity presence: with serious comorbidity Body mass index: BMI 40.0-44.9 Qualified Code(s): E66.01 - Morbid (severe) obesity due to excess calories; Z68.41 - Body mass index (BMI) 40.0-44.9, adult Category: Medical Code(s): E66.9 - Obesity, unspecified (4) HTN (hypertension) Current visit: Yes Status: Acute Qualifiers: Hypertension type: essential hypertension Qualified Code(s): I10 - Essential (primary) hypertension Category: Medical Code(s): I10 - Essential (primary) hypertension (5) SIRS (systemic inflammatory response syndrome) Current visit: Yes Status: Acute Category: Medical Code(s): R65.10 - Systemic inflammatory response syndrome (SIRS) of non-infectious origin without acute organ dysfunction (6) Elevated C-reactive protein (CRP) Current visit: Yes Status: Acute Category: Medical Code(s): R79.82 - Elevated C-reactiv
--- NOTE | 2020-03-05 09:19 | PC.NURSE ---
educated and gave patient information sheet on the remdesivir an investigational drug and its use in coronavirus treatment.
--- NOTE | 2020-03-05 09:50 | PC.NURSE ---
remdesivir finished and flushed for 30ml/hr of ns. also spoke with legal guardian of patient about the medication
--- NOTE | 2020-03-05 09:52 | PC.NURSE ---
spoke with patient sister/legal guardian about her concern of wanting patient placed somewhere closer to her in [place]. relayed patient sister information to care management. sister also states she will fax legal guardian paperwork
--- NOTE | 2020-03-05 10:35 | XR_ITS ---
PROCEDURE: XR CHEST PORTABLE CLINICAL HISTORY: SOA Shortness of air and cough COMPARISON: XR CHEST 2V from 05/09/2019 XR CHEST PORTABLE from 03/02/2020 XR CHEST PORTABLE from 03/03/2020 FINDINGS: The cardiomediastinal silhouette and pulmonary vascularity are within normal limits. There is elevated right hemidiaphragm with consolidation in the right lung base and possible small right effusion. Questionable atelectatic changes versus patchy infiltrate also noted in the left lung base. No acute bony findings. IMPRESSION: Right lower lobe pneumonia and/or atelectatic change with small effusion with questionable atelectasis or infiltrate in the left lung base Dictated by: Jaime Betancourt MD 03/05/2020 13:11 Electronically signed by Jaime Betancourt MD in [facility] 03/05/2020 13:11
--- NOTE | 2020-03-05 14:31 | PC.NURSE ---
on room air patient sats are 85%. requiring 3l of o2 to be at 91%
--- NOTE | 2020-03-05 17:08 | PC.NURSE ---
Pt has been febrile with Tmax 101.6 po. He reports not feeling bad, hot or SOA. O2 sats mid 80s on RA. He started out on 1.5L NC at beginning of shift. Liter flow increased to 3L cont via NC before noon for low O2 sat and dyspnea. RR 20-32 with labored breaths and abd breathing. He has no complaints. Has been tachy most of shift with HR 100-115. Bilateral lungs clear this morning but diminished this afternoon. CXR completed today which revealed new RLL pneumonia. Right AC IV discontinued and right hand IV inserted. Has LR infusing @ 50mL/hr. Was started on Remdesivir today without issues. Has had 3 loose BMs this shift. Had 1 episode of stool incontinence that resulted in a complete bed change and bath. He is able to get OOB without assistance and make it to BSC most times. Will use urinal prn. Has refused all food today. Will drink water with meds.
[2020-03-06] VITALS (7 sets, daily range): BP systolic 121–147; BP diastolic 81–88; PULSE 78–90; RESP 18–24; TEMP 36.5–36.8; O2SAT 82–96; BMI 43.3
--- NOTE | 2020-03-06 04:54 | PC.NURSE ---
Pt slept in long intervals this shift. No complaints reported to staff. Afebrile throughout the shift. Pt did desat multiple times while sleeping into low 80's on 3LNC. This RN repositioned pt's HOB to semi-fowlers and had pt use IS w/ come effectiveness. O2 increased to 4LNC while asleep w/ sats between 91%-95%. Pt has no complaints of SOA. RA sat of 82% at rest. Pt has been using BSC independently. No issues voiding and pt did have a small, formed BM this shift. Tolerating IV ABX. LR infusing per MAR. IS best of !000 this shift. Will continue to monitor.
[2020-03-06 06:54] LABS: Basophils % 0.2 % (0.1-2.0); Eosinophils # 0.1 K/mm3 (0.0-0.4); Eosinophils % 1.4 % (0.1-12.0); Hematocrit 35.7 % (42.0-52.0); Hemoglobin 11.9 g/dL (14.1-18.0); Lymphocytes # 1.1 K/mm3 (0.7-4.5); Lymphocytes % 33.3 % (10-50); Mean Corpuscular HGB Conc 33.3 g/dL (31.8-35.4); Mean Corpuscular Hemoglobin 31.5 pg (27.0-31.2); Mean Corpuscular Volume 94.5 fl (80-94); Mean Platelet Volume 7.7 fl (7.4-10.4); Monocytes # 0.2 K/mm3 (0.1-1.0); Monocytes % 6.4 % (1.7-9.3); Neutrophils % 58.6 % (37.0-80.0); Platelet Count 112 K/mm3 (142-424); Red Blood Count 3.77 M/mm3 (4.60-6.20); Red Cell Distribution Width 13.7 % (11.5-17.5); White Blood Count 3.4 K/mm3 (4.8-10.8)
[2020-03-06 07:16] LABS: Chloride 97 mmol/L (98-107); Potassium 3.4 mmoL/L (3.5-5.1); Sodium 137 mmol/L (136-145)
[2020-03-06 07:19] LABS: Blood Urea Nitrogen 13 mg/dl (9-20); Creatinine Clearance Estimated 64 mL/min (50-200); Estimated Glomerular Filt Rate 57 ml/min (>60); GFR (African American) 69 ML/MIN (>60)
[2020-03-06 07:20] LABS: Anion Gap 5.4 mEq/L (5-15); Calcium 7.3 mg/dl (8.4-10.2); Carbon Dioxide 38 mmol/L (22.0-30.0); Glucose 110 mg/dl (74-100)
--- NOTE | 2020-03-06 07:45 | HMH.ACPN ---
Internal Medicine - PN: Subj *Date: 03/06/20 *Time: 07:45 Exam Vital signs and Labs for Last 24 Hours: Temp Pulse Resp BP Pulse Ox 98.3 F 78 24 147/88 H 82 L 03/06/20 03:41 03/06/20 03:41 03/06/20 03:41 03/06/20 03:41 03/06/20 03:56 Laboratory Results - last 24 hr 03/06/20 06:25: WBC 3.4 L D, RBC 3.77 L, Hgb 11.9 L, Hct 35.7 L, MCV 94.5 H, MCH 31.5 H, MCHC 33.3, RDW 13.7, Plt Count 112 L, MPV 7.7, Neut % (Auto) 58.6, Lymph % (Auto) 33.3, [place] % (Auto) 6.4, Eos % (Auto) 1.4, Baso % (Auto) 0.2, Neut # (Auto) 2.0, Lymph # (Auto) 1.1, [place] # (Auto) 0.2, Eos # (Auto) 0.1, Baso # (Auto) 0.0 03/06/20 06:25: Sodium 137, Potassium 3.4 L, Chloride 97 L, Carbon Dioxide 38 H, Anion Gap 5.4, BUN 13, Creatinine 1.30 H, Estimated Creat Clear 64, Estimated GFR 57 L, Est GFR ( Amer) 69, Glucose 110 H, Calcium 7.3 L I & O for Last 24 hours: Intake & Output 03/03/20 03/04/20 03/05/20 03/06/20 23:59 23:59 23:59 23:59 Intake Total 4722 / 4722 1810 / 1810 1466 / 1466 Output Total 1500 / 1500 250 / 250 200 / 200 801 / 801 Balance 3222 / 3222 1560 / 1560 1266 / 1266 -801 / -801 Weight 137.665 kg 136.701 kg 139.054 kg 137.438 kg Assessment and Plan (1) COVID-19 virus infection Current visit: Yes Status: Acute Category: Medical Code(s): U07.1 - COVID-19 (2) Schizoaffective disorder Current visit: Yes Status: Acute Qualifiers: Schizoaffective disorder type: unspecified Qualified Code(s): F25.9 - Schizoaffective disorder, unspecified Category: Medical Code(s): F25.9 - Schizoaffective disorder, unspecified (3) Obesity Current visit: Yes Status: Acute Qualifiers: Obesity type: due to excess calories Obesity classification: adult class 3 (BMI >= 40) Serious obesity comorbidity presence: with serious comorbidity Body mass index: BMI 40.0-44.9 Qualified Code(s): E66.01 - Morbid (severe) obesity due to excess calories; Z68.41 - Body mass index (BMI) 40.0-44.9, adult Category: Medical Code(s): E66.9 - Obesity, unspecified (4) HTN (hypertension) Current visit: Yes Status: Acute Qualifiers: Hypertension type: essential hypertension Qualified Code(s): I10 - Essential (primary) hypertension Category: Medical Code(s): I10 - Essential (primary) hypertension (5) SIRS (systemic inflammatory response syndrome) Current visit: Yes Status: Acute Category: Medical Code(s): R65.10 - Systemic inflammatory response syndrome (SIRS) of non-infectious origin without acute organ dysfunction (6) Elevated C-reactive protein (CRP) Current visit: Yes Status: Acute Category: Medical Code(s): R79.82 - Elevated C-reactive protein (CRP) (7) Respiratory failure with hypoxia and hypercapnia Current visit: Yes Status: Acute Category: Medical Code(s): J96.91 - Respiratory failure, unspecified with hypoxia; J96.92 - Respiratory failure, unspecified with hypercapnia (8) Thrombocytopenia Current visit: Yes Status: Acute Category: Medical Code(s): D69.6 - Thrombocytopenia, unspecified (9) Pneumonia Start date: 03/02/20 (COVID-19) Current visit: Yes Status: Acute Qualifiers: Pneumonia type: due to unspecified organism Laterality: right Lung location: lower lobe of lung Qualified Code(s): J18.9 - Pneumonia, unspecified organism Category: Medical Code(s): J18.9 - Pneumonia, unspecified organism The patient's infection will respond to the chosen ABx?: Yes Is the patient receiving the right drug, dose, and route?: Yes Could a more targeted ABx be ordered?: No
--- NOTE | 2020-03-06 08:24 | HMH.ACPN2 ---
Internal Medicine - PN: Subj *Date: 03/06/20 *Time: 08:24 Interval history: Patient rested comfortably overnight, continues to have a minimal oxygen requirement. Ate breakfast well. Otherwise has no complaints. Exam Vital signs and Labs for Last 24 Hours: Temp Pulse Resp BP Pulse Ox 97.9 F 88 22 121/81 96 03/06/20 08:00 03/06/20 08:00 03/06/20 08:00 03/06/20 08:00 03/06/20 08:00 Laboratory Results - last 24 hr 03/06/20 06:25: WBC 3.4 L D, RBC 3.77 L, Hgb 11.9 L, Hct 35.7 L, MCV 94.5 H, MCH 31.5 H, MCHC 33.3, RDW 13.7, Plt Count 112 L, MPV 7.7, Neut % (Auto) 58.6, Lymph % (Auto) 33.3, [place] % (Auto) 6.4, Eos % (Auto) 1.4, Baso % (Auto) 0.2, Neut # (Auto) 2.0, Lymph # (Auto) 1.1, [place] # (Auto) 0.2, Eos # (Auto) 0.1, Baso # (Auto) 0.0 03/06/20 06:25: Sodium 137, Potassium 3.4 L, Chloride 97 L, Carbon Dioxide 38 H, Anion Gap 5.4, BUN 13, Creatinine 1.30 H, Estimated Creat Clear 64, Estimated GFR 57 L, Est GFR ( Amer) 69, Glucose 110 H, Calcium 7.3 L I & O for Last 24 hours: Intake & Output 03/03/20 03/04/20 03/05/20 03/06/20 11:59 11:59 11:59 11:59 Intake Total 3597 / 3597 1605 / 1605 1450 / 1450 1706 / 1706 Output Total 150 / 150 1600 / 1600 200 / 200 801 / 801 Balance 3447 / 3447 5 / 5 1250 / 1250 905 / 905 Weight 303 lb 8 oz 301 lb 6 oz 306 lb 9 oz 303 lb - Constitutional no acute distress, morbidly obese - *Routine HEENT Exam Head: Present: normocephalic - *Routine Neck Exam Present: supple. Absent: lymphadenopathy - *Routine Respiratory Exam Present: rhonchi Comments: And right base - *Routine Cardiovascular Exam Present: RRR - *Routine Abdominal Exam Present: soft, normoactive bowel sounds. Absent: tenderness - *Routine Extremities Exam Absent: cyanosis, clubbing, edema - *Routine Skin Exam Present: warm. Absent: rash - *Routine Neurological Exam Present: alert, oriented X3 Assessment and Plan (1) COVID-19 virus infection Current visit: Yes Status: Acute Category: Medical Code(s): U07.1 - COVID-19 (2) Schizoaffective disorder Current visit: Yes Status: Acute Qualifiers: Schizoaffective disorder type: unspecified Qualified Code(s): F25.9 - Schizoaffective disorder, unspecified Category: Medical Code(s): F25.9 - Schizoaffective disorder, unspecified (3) Obesity Current visit: Yes Status: Acute Qualifiers: Obesity type: due to excess calories Obesity classification: adult class 3 (BMI >= 40) Serious obesity comorbidity presence: with serious comorbidity Body mass index: BMI 40.0-44.9 Qualified Code(s): E66.01 - Morbid (severe) obesity due to excess calories; Z68.41 - Body mass index (BMI) 40.0-44.9, adult Category: Medical Code(s): E66.9 - Obesity, unspecified (4) HTN (hypertension) Current visit: Yes Status: Acute Qualifiers: Hypertension type: essential hypertension Qualified Code(s): I10 - Essential (primary) hypertension Category: Medical Code(s): I10 - Essential (primary) hypertension (5) SIRS (systemic inflammatory response syndrome) Current visit: Yes Status: Acute Category: Medical Code(s): R65.10 - Systemic inflammatory response syndrome (SIRS) of non-infectious origin without acute organ dysfunction (6) Elevated C-reactive protein (CRP) Current visit: Yes Status: Acute Category: Medical Code(s): R79.82 - Elevated C-reactive protein (CRP) (7) Respiratory failure with hypoxia and hypercapnia Current visit: Yes Status: Acute Category: Medical Code(s): J96.91 - Respiratory failure, unspecified with hypoxia; J96.92 - Respiratory failure, unspecified with hypercapnia (8) Thrombocytopenia Current visit: Yes Status: Acute Category: Medical Code(s): D69.6 - Thrombocytopenia, unspecified (9) Pneumonia Start date: 03/02/20 (COVID-19) Current visit: Yes Status: Acute Qualifiers: Pneumonia type: due to unspecified organism Laterality:
--- NOTE | 2020-03-06 13:56 | SW/DCPLANNER ---
SENT A PACKET OF PATIENT INFORMATION TO [facility] TO SEE IF THIS PATIENT IS A CANDIDATE FOR THEIR SKILLED CARE UNIT... PATIENT PRESENTED INTO [facility] FROM [facility] WITH COVID19... PATIENT CURRENTLY IS RECEIVING 4 LPM NASAL 02 AND HAS BEEN FEBRILE... DR SCHROEDER STATED IF HE CAN BE AFEBRILE FOR 24 HRS AND HIS 02 CAN BE MANAGED AT 2 LPM PER NASAL CANNULA HE CAN GO [facility]...WAITING TO HEAR BACK TO SEE IF ACCEPTED...
--- NOTE | 2020-03-06 16:28 | PC.NURSE ---
Patient has rested well this shift, remains on 4LNC, lung sounds reveal scattered rhonchi t/o, perrla, alert and oriented x3, abd soft and nontender, active bowel sounds in all quads, appetite fair, has been up on side of bed for a short period of time this shift, has slept on and off for most of the day, complete bed bath given with linen change, vital signs remain stable, has been afebrile for all of shift, no s/s of distress noted, will continue to monitor.
--- NOTE | 2020-03-06 19:35 | PC.NURSE ---
Pt sats 93-95% on 4 LPM via NC, titrated O2 down to 3LMP. Current sat 94%, pt denies any SOA or dyspnea. will continue to monitor.
[2020-03-07] VITALS (15 sets, daily range): BP systolic 129–167; BP diastolic 88–102; PULSE 86–96; RESP 20–24; TEMP 36.4–37.1; O2SAT 88–95
--- NOTE | 2020-03-07 02:25 | PC.NURSE ---
Pt maintaining sats 93-95% on 3LPM of O2, titrated O2 down to 2LPM, current sat 92%. Pt is resting well. Will continue to monitor.
--- NOTE | 2020-03-07 04:30 | PC.NURSE ---
Pt is A&O and has ambulated independently several times to the BS and tolerated well. Pt has denied any SOA and no labored breathing noted t/o shift. Lungs diminished with scattered rhonchi. Pt has been weaned down to 2LPM O2 via NC with sats 92-95%. Room air sat this shift was 88%. Pt remained afebrile t/o shift. 2 soft/loose BM's this shift. Pt has denied any N/V. Active BS x4 quads, ABD is soft & non-tender. Lovenx for VTE. IS completed several times during shift and pt's max was 1,000ml. VSS, call light within reach, will continue to monitor.
[2020-03-07 05:45] LABS: Basophils % 0.3 % (0.1-2.0); Eosinophils # 0.1 K/mm3 (0.0-0.4); Eosinophils % 2.7 % (0.1-12.0); Hematocrit 34.5 % (42.0-52.0); Hemoglobin 11.4 g/dL (14.1-18.0); Lymphocytes # 1.1 K/mm3 (0.7-4.5); Lymphocytes % 34.3 % (10-50); Mean Corpuscular Hemoglobin 30.4 pg (27.0-31.2); Mean Corpuscular Volume 92.1 fl (80-94); Monocytes # 0.2 K/mm3 (0.1-1.0); Monocytes % 5.5 % (1.7-9.3); Neutrophils # 1.8 K/mm3 (1.8-7.8); Neutrophils % 57.1 % (37.0-80.0); Platelet Count 129 K/mm3 (142-424); Red Blood Count 3.74 M/mm3 (4.60-6.20); Red Cell Distribution Width 13.6 % (11.5-17.5); White Blood Count 3.1 K/mm3 (4.8-10.8)
[2020-03-07 06:00] LABS: Blood Urea Nitrogen 12 mg/dl (9-20); Chloride 95 mmol/L (98-107); Creatinine Clearance Estimated 64 mL/min (50-200); Estimated Glomerular Filt Rate 57 ml/min (>60); GFR (African American) 69 ML/MIN (>60); Glucose 115 mg/dl (74-100); Potassium 3.2 mmoL/L (3.5-5.1); Sodium 140 mmol/L (136-145)
[2020-03-07 06:09] LABS: Anion Gap 8.2 mEq/L (5-15); Calcium 8.1 mg/dl (8.4-10.2); Carbon Dioxide 40 mmol/L (22.0-30.0)
--- NOTE | 2020-03-07 06:55 | PC.NURSE ---
@ 0620 pt's O2 was titrated down to 1LPM via NC. Sats 92-94%.
--- NOTE | 2020-03-07 08:41 | HMH.ACPN2 ---
Internal Medicine - PN: Subj *Date: 03/07/20 *Time: 08:41 Interval history: Patient has done exceedingly well over the last 24 hours. He is been weaned down to room air and has been on room air for the past couple of hours with no distress. He reports that he is feeling better, will eat breakfast this morning. Nurses report this patient's been able to ambulate, go to the restroom by himself and do all of his activities of daily living. He has been afebrile for 48 hours. Exam Vital signs and Labs for Last 24 Hours: Temp Pulse Resp BP Pulse Ox 98.2 F 96 H 20 129/93 H 91 L 03/07/20 08:00 03/07/20 08:00 03/07/20 08:23 03/07/20 08:00 03/07/20 08:23 Laboratory Results - last 24 hr 03/07/20 04:50: WBC 3.1 L, RBC 3.74 L, Hgb 11.4 L, Hct 34.5 L, MCV 92.1, MCH 30.4, MCHC 33.0, RDW 13.6, Plt Count 129 L, MPV 8.0, Neut % (Auto) 57.1, Lymph % (Auto) 34.3, [place] % (Auto) 5.5, Eos % (Auto) 2.7, Baso % (Auto) 0.3, Neut # (Auto) 1.8, Lymph # (Auto) 1.1, [place] # (Auto) 0.2, Eos # (Auto) 0.1, Baso # (Auto) 0.0 03/07/20 04:50: Sodium 140, Potassium 3.2 L, Chloride 95 L, Carbon Dioxide 40 H, Anion Gap 8.2, BUN 12, Creatinine 1.30 H, Estimated Creat Clear 64, Estimated GFR 57 L, Est GFR ( Amer) 69, Glucose 115 H, Calcium 8.1 L D I & O for Last 24 hours: Intake & Output 03/04/20 03/05/20 03/06/20 03/07/20 11:59 11:59 11:59 11:59 Intake Total 1605 / 1605 1450 / 1450 1706 / 1706 3337 / 3337 Output Total 1600 / 1600 200 / 200 801 / 801 3303 / 3303 Balance 1250 / 1250 905 / 905 34 / 34 Weight 301 lb 6 oz 306 lb 9 oz 303 lb Narrative: Patient is pleasant, talkative, oriented x2 which is his baseline. Lungs have good air movement bilaterally. Minimal rhonchi but improving. Obesity limits his exam but abdomen is soft and nontender. He has no clubbing or cyanosis or edema. Heart rate regular. ENT exam clear. Neurologic exam nonfocal. Rash Assessment and Plan (1) COVID-19 virus infection Current visit: Yes Status: Acute Category: Medical Code(s): U07.1 - COVID-19 (2) Schizoaffective disorder Current visit: Yes Status: Acute Qualifiers: Schizoaffective disorder type: unspecified Qualified Code(s): F25.9 - Schizoaffective disorder, unspecified Category: Medical Code(s): F25.9 - Schizoaffective disorder, unspecified (3) Obesity Current visit: Yes Status: Acute Qualifiers: Obesity type: due to excess calories Obesity classification: adult class 3 (BMI >= 40) Serious obesity comorbidity presence: with serious comorbidity Body mass index: BMI 40.0-44.9 Qualified Code(s): E66.01 - Morbid (severe) obesity due to excess calories; Z68.41 - Body mass index (BMI) 40.0-44.9, adult Category: Medical Code(s): E66.9 - Obesity, unspecified (4) HTN (hypertension) Current visit: Yes Status: Acute Qualifiers: Hypertension type: essential hypertension Qualified Code(s): I10 - Essential (primary) hypertension Category: Medical Code(s): I10 - Essential (primary) hypertension (5) SIRS (systemic inflammatory response syndrome) Current visit: Yes Status: Acute Category: Medical Code(s): R65.10 - Systemic inflammatory response syndrome (SIRS) of non-infectious origin without acute organ dysfunction (6) Elevated C-reactive protein (CRP) Current visit: Yes Status: Acute Category: Medical Code(s): R79.82 - Elevated C-reactive protein (CRP) (7) Respiratory failure with hypoxia and hypercapnia Current visit: Yes Status: Acute Category: Medical Code(s): J96.91 - Respiratory failure, unspecified with hypoxia; J96.92 - Respiratory failure, unspecified with hypercapnia (8) Thrombocytopenia Current visit: Yes Status: Acute Category: Medical Code(s): D69.6 - Thrombocytopenia, unspecified (9) Pneumonia Start date: 03/02/20 (COVID-19) Current visit: Yes Status: Acute Qualifiers: Pneumonia type: due to unspecified
--- NOTE | 2020-03-07 16:01 | PC.NURSE ---
PT HAS REMAINED ON ROOM AIR W/ NO S/S OF RESP DISTRESS. DENIES SOA. IS ENCOURAGE PERIODICALLY THROUGHOUT SHIFT W/ PT IS AWAKE - HAS REACHED 750-1000 EACH USE. REMAINS AFEBRILE. HAS BEEN ASKED MULTIPLE TIMES IF HE WOULD LIKE TO SIT UP IN RECLINER AND HAS REFUSED. TOTAL BATH AND LINEN CHANGE PROVIDED BY STAFF THIS SHIFT. HAS HAD TWO LOOSE STOOLS THIS SHIFT. VOIDING W/O DIFFICULTY. AMBULATES INDEPENDENTLY TO BSC W/ NO SAFETY CONCERNS. POOR PO INTAKE THIS SHIFT, ATE SOME BREAKFAST AND REFUSED LUNCH. LOVENOX GIVEN FOR VTE PROPHYLAXIS. IVF INFUSING PER MAR. NO COMPLAINTS VOICED. WILL CONTINUE TO MONITOR.
[2020-03-08] VITALS (8 sets, daily range): BP systolic 141–160; BP diastolic 82–101; PULSE 86–92; RESP 20–22; TEMP 36.4–36.9; O2SAT 92–95; BMI 43.0
[2020-03-08 06:15] LABS: Blood Urea Nitrogen 9 mg/dl (9-20); Chloride 96 mmol/L (98-107); Creatinine Clearance Estimated 64 mL/min (50-200); Estimated Glomerular Filt Rate 57 ml/min (>60); GFR (African American) 69 ML/MIN (>60); Glucose 124 mg/dl (74-100); Sodium 142 mmol/L (136-145)
[2020-03-08 06:16] LABS: Carbon Dioxide 40 mmol/L (22.0-30.0)
--- NOTE | 2020-03-08 06:43 | PC.NURSE ---
shift summary, pt has been up to BSC several times t/o shift, pt refuses to have IV fluids running due to keeping him awake, oral intake 2000 mL this shift
[2020-03-08 06:49] LABS: Basophils # 0.1 K/mm3 (0-0.2); Basophils % 1.3 % (0.1-2.0); Eosinophils # 0.1 K/mm3 (0.0-0.4); Eosinophils % 2.1 % (0.1-12.0); Hematocrit 39.5 % (42.0-52.0); Lymphocytes % 25.5 % (10-50); Mean Corpuscular HGB Conc 32.8 g/dL (31.8-35.4); Mean Corpuscular Hemoglobin 30.4 pg (27.0-31.2); Mean Corpuscular Volume 92.6 fl (80-94); Mean Platelet Volume 7.8 fl (7.4-10.4); Monocytes # 0.3 K/mm3 (0.1-1.0); Monocytes % 6.4 % (1.7-9.3); Neutrophils # 2.6 K/mm3 (1.8-7.8); Neutrophils % 64.7 % (37.0-80.0); Platelet Count 175 K/mm3 (142-424); Red Blood Count 4.26 M/mm3 (4.60-6.20); Red Cell Distribution Width 13.3 % (11.5-17.5); White Blood Count 4.1 K/mm3 (4.8-10.8)
--- NOTE | 2020-03-08 09:02 | HMH.ACPN2 ---
Internal Medicine - PN: Subj *Date: 03/08/20 *Time: 09:02 Interval history: Patient did well, slept well, has had some loose stools Exam Vital signs and Labs for Last 24 Hours: Temp Pulse Resp BP Pulse Ox 97.7 F 90 20 150/101 H 92 L 03/08/20 07:08 03/08/20 07:08 03/08/20 08:00 03/08/20 07:08 03/08/20 08:00 Laboratory Results - last 24 hr 03/08/20 05:20: WBC 4.1 L D, RBC 4.26 L, Hgb 13.0 L, Hct 39.5 L, MCV 92.6, MCH 30.4, MCHC 32.8, RDW 13.3, Plt Count 175 D, MPV 7.8, Neut % (Auto) 64.7, Lymph % (Auto) 25.5, [place] % (Auto) 6.4, Eos % (Auto) 2.1, Baso % (Auto) 1.3, Neut # (Auto) 2.6, Lymph # (Auto) 1.0, [place] # (Auto) 0.3, Eos # (Auto) 0.1, Baso # (Auto) 0.1 03/08/20 05:20: Sodium 142, Potassium 3.0 L, Chloride 96 L, Carbon Dioxide 40 H, Anion Gap 9.0, BUN 9, Creatinine 1.30 H, Estimated Creat Clear 64, Estimated GFR 57 L, Est GFR ( Amer) 69, Glucose 124 H, Calcium 9.0 D I & O for Last 24 hours: Intake & Output 03/05/20 03/06/20 03/07/20 03/08/20 11:59 11:59 11:59 11:59 Intake Total 1450 / 1450 1706 / 1706 3337 / 3337 4034 / 4034 Output Total 200 / 200 801 / 801 3803 / 3803 1302 / 1302 Balance 1250 / 1250 905 / 905 -466 / -466 2732 / 2732 Weight 306 lb 9 oz 303 lb 300 lb 11.368 oz Microbiology Reports for the Last 24 Hours: Microbiology 03/02/20 17:50 Blood Blood Culture - Final NO GROWTH AFTER 5 DAYS 03/02/20 17:50 Blood Blood Culture - Final NO GROWTH AFTER 5 DAYS Narrative: Pleasant, alert, oriented x2. No scleral icterus or jaundice. Abdomen soft and nontender. Nursing documentation shows no blood in the stool, no mucus. Patient is been afebrile. Lungs have excellent air movement bilaterally. Heart rate regular. No edema or clubbing. ENT clear. Neurologic exam nonfocal Assessment and Plan (1) COVID-19 virus infection Current visit: Yes Status: Acute Category: Medical Code(s): U07.1 - COVID-19 (2) Schizoaffective disorder Current visit: Yes Status: Acute Qualifiers: Schizoaffective disorder type: unspecified Qualified Code(s): F25.9 - Schizoaffective disorder, unspecified Category: Medical Code(s): F25.9 - Schizoaffective disorder, unspecified (3) Obesity Current visit: Yes Status: Acute Qualifiers: Obesity type: due to excess calories Obesity classification: adult class 3 (BMI >= 40) Serious obesity comorbidity presence: with serious comorbidity Body mass index: BMI 40.0-44.9 Qualified Code(s): E66.01 - Morbid (severe) obesity due to excess calories; Z68.41 - Body mass index (BMI) 40.0-44.9, adult Category: Medical Code(s): E66.9 - Obesity, unspecified (4) HTN (hypertension) Current visit: Yes Status: Acute Qualifiers: Hypertension type: essential hypertension Qualified Code(s): I10 - Essential (primary) hypertension Category: Medical Code(s): I10 - Essential (primary) hypertension (5) SIRS (systemic inflammatory response syndrome) Current visit: Yes Status: Acute Category: Medical Code(s): R65.10 - Systemic inflammatory response syndrome (SIRS) of non-infectious origin without acute organ dysfunction (6) Elevated C-reactive protein (CRP) Current visit: Yes Status: Acute Category: Medical Code(s): R79.82 - Elevated C-reactive protein (CRP) (7) Respiratory failure with hypoxia and hypercapnia Current visit: Yes Status: Acute Category: Medical Code(s): J96.91 - Respiratory failure, unspecified with hypoxia; J96.92 - Respiratory failure, unspecified with hypercapnia (8) Thrombocytopenia Current visit: Yes Status: Acute Category: Medical Code(s): D69.6 - Thrombocytopenia, unspecified (9) Pneumonia Start date: 03/02/20 (COVID-19) Current visit: Yes Status: Acute Qualifiers: Pneumonia type: due to unspecified organism Laterality: right Lung location: lower lobe of lung Qualified C
--- NOTE | 2020-03-08 17:38 | PC.NURSE ---
Continues to remain on room air. No s/s of resp distress. No c/o being SOA. IS encourage w/ best of 1000. Remains afebrile. Ambulates and performs ADL's independently w/ no safety concerns. Voiding w/o difficulty. Has had two small watery stools this shift. Lomotil given per MAR w/ pt reporting effectiveness. Pt did eat some of dinner tray and has had better PO intake today. Staff assisted pt w/ bath at bedside, linens have been changed multiple times d/t urine and stool getting on sheets. Sat up for brief time in recliner today. Sister called this nurse and was updated on pt's current status, pt also spoke w/ sister via telephone. Lovenox cont for VTE prophylaxis. Pt refuses MD JACOB aware. No complaints voiced this shift. Will continue to monitor.
[2020-03-09 04:00] VITALS: BP 140/90; PULSE 88; RESP 20; TEMP 36.9; O2SAT 92
[2020-03-09 05:00] VITALS: BMI 40.5
[2020-03-09 05:26] LABS: Basophils % 0.5 % (0.1-2.0); Eosinophils # 0.1 K/mm3 (0.0-0.4); Eosinophils % 2.7 % (0.1-12.0); Hemoglobin 12.6 g/dL (14.1-18.0); Lymphocytes # 1.3 K/mm3 (0.7-4.5); Lymphocytes % 25.1 % (10-50); Mean Corpuscular Hemoglobin 31.1 pg (27.0-31.2); Mean Corpuscular Volume 91.4 fl (80-94); Mean Platelet Volume 7.8 fl (7.4-10.4); Monocytes # 0.3 K/mm3 (0.1-1.0); Monocytes % 5.3 % (1.7-9.3); Neutrophils # 3.4 K/mm3 (1.8-7.8); Neutrophils % 66.3 % (37.0-80.0); Platelet Count 208 K/mm3 (142-424); Red Blood Count 4.04 M/mm3 (4.60-6.20); Red Cell Distribution Width 13.8 % (11.5-17.5); White Blood Count 5.1 K/mm3 (4.8-10.8)
[2020-03-09 05:30] LABS: Anion Gap 10.7 mEq/L (5-15); Blood Urea Nitrogen 7 mg/dl (9-20); Calcium 8.9 mg/dl (8.4-10.2); Carbon Dioxide 39 mmol/L (22.0-30.0); Chloride 96 mmol/L (98-107); Creatinine Clearance Estimated 133 mL/min (50-200); Estimated Glomerular Filt Rate 69 ml/min (>60); GFR (African American) 83 ML/MIN (>60); Glucose 127 mg/dl (74-100); Sodium 143 mmol/L (136-145)
[2020-03-09 05:31] LABS: Potassium 2.7 mmoL/L (3.5-5.1)
--- NOTE | 2020-03-09 05:47 | PC.NURSE ---
shift summary, pt has rested well this shift, 1 loose stool treated with lomotil, critical lab results received, Dr. Zamudio notified, new orders received and carried out
[2020-03-09 05:57] LABS: Magnesium 1.8 mg/dl (1.6-2.3)
[2020-03-09 07:59] VITALS: BP 153/90; PULSE 102; RESP 22; TEMP 36.5; O2SAT 90
[2020-03-09 08:00] VITALS: O2SAT 90
--- NOTE | 2020-03-09 09:30 | SW/DCPLANNER ---
Addendum entered by [facility] 03/09/20 13:51: Dr Glover is accepting MD for [facility]. Patient will discharge today. Addendum entered by [facility] 03/09/20 12:02: Irene from [facility] has stated she can accept this patient today. I have informed Dr Zamudio and Kamaljit. I will also contact patients sister. Addendum entered by [facility] 03/09/20 09:36: Updated patient information has been faxed to [facility]. Original Note: I have spoke with this patients sister (Kavita: [phone]) regarding this patient. Kavita at first stated that she wanted this patient to be placed in [place] or [place] if necessary for placement. Patient then called back and stated that she would prefer this patient go to [facility]. I have spoke with Candida from [place] and she has stated that since family has requested [facility] they would prefer patient go to placement prior to returning to [facility]. I have attempted to contact Irene from [facility] and I am waiting for a returned phone call. Patient could potentially discharge today if can be accepted by [facility].
--- NOTE | 2020-03-09 11:21 | HMH.PTEV ---
Physical Therapy Evaluation Rehab PT IP Evaluation Start: 03/09/20 07:58 Freq: ONCE Status: Active Protocol: Document 03/09/20 11:18 PHORCURT (Rec: 03/09/20 11:21 PHORNE [id number]) Subjective/History History History 60 yowm adm to [facility] with weakness and complications from COVID-19 infection. He lives at a personal half-way with schizophrenia at baseline and is independent with all mobility. Subjective Subjective No c/o this am. Rehab PT IP Eval Objective Appearance Patient Behavior Appropriate Patient Orientation Person Difficulty following instructions none Speech Pattern Clear Ambulation Patient Able to Ambulate Yes Ambulation Observation IP General Gait Pattern Observation No Deviations/Normal Ambulation Distance (feet) 30 Ambulation Assistive Device None Ambulation Ability Independent Balance Ability to Arise Able, uses arms to help Sitting Balance Steady, safe Dynamic Sitting Balance Ability Normal Dynamic Standing Balance Ability Good Transfers Bed Transfer Ability Independent Chair Transfer Ability Independent Sit to Stand Bed Transfer Ability Independent Sit to Stand Chair Transfer Ability Independent ROM All Extremities PT ROM Status WFL MMT All Extremities PT MMT WFL Rehab PT IP prob,goals,plan Problems Date of Evaluation: 03/09/20 Discharge Plan PT Discharge Plan Pt is independent with all mobility and ambulation, he is appropriate to return to personal cere home once medically stable. G -code Required No Eval Complexity Eval Charge Codes 18681 - Moderate Complexity PHYSICIAN CERTIFICATION: I certify the specified therapy services for Woody Bundy are required, authorized, and reviewed every 30 days.
[2020-03-09 12:52] VITALS: BP 139/94; PULSE 105; RESP 22; TEMP 36.6; O2SAT 93
--- NOTE | 2020-03-09 13:21 | HMH.DCSUM ---
General - General Admission date:: 03/03/20 Discharge date: 03/09/20 HPI HPI: this wm sent from local care home with fever and exposure to covid - had prev neg testing - pt with weakness and dec po intake - he was seen in the ed Patient is a 60-year-old male who denies any past medical history, who presents to the emergency department for evaluation of fever, and shortness of breath. Patient symptoms started yesterday with a fever of 102 degrees. Patient was noted to be hypoxic in his facility and started on oxygen. Patient has no history of COPD or CHF and has never needed oxygen before. Patient denies nausea, vomiting, chest pain, abdominal pain, or dysuria at this time. pt was admitted with covid-19 resp illness Hospital Course Hospital Course: Laboratory Tests 03/02/20 03/02/20 03/02/20 17:50 17:50 17:50 WBC 5.3 RBC 4.94 Hgb 15.7 Hct 45.5 MCV 92.1 MCH 31.9 H MCHC 34.6 RDW 13.7 Plt Count 138 L MPV 7.8 Neut % (Auto) 70.6 Lymph % (Auto) 22.5 [place] % (Auto) 4.4 Eos % (Auto) 2.2 Baso % (Auto) 0.3 Neut # (Auto) 3.8 Lymph # (Auto) 1.2 [place] # (Auto) 0.2 Eos # (Auto) 0.1 Baso # (Auto) 0.0 ESR 49 H Specimen Source O2 % ABG pH ABG pCO2 ABG pO2 ABG HCO3 ABG Total CO2 ABG O2 Saturation ABG Base Excess Jaime Test Sodium 136 Potassium 3.7 Chloride 95 L Carbon Dioxide 35 H Anion Gap 9.7 BUN 10 Creatinine 0.70 Estimated Creat Clear 207 Estimated GFR 116 Est GFR ( Amer) 140 Glucose 239 H Lactate 2.4 H Calcium 8.8 Magnesium Total Bilirubin 0.7 AST 78 H ALT 57 Alkaline Phosphatase 109 C-Reactive Protein 46.0 H Total Protein 7.2 Albumin 3.9 Globulin 3.3 H Albumin/Globulin Ratio 1.2 Vancomycin Trough Chlamy pneumoniae PCR Adenovirus (PCR) B. pertussis DNA (PCR) Coronavirus OC43 (PCR) Coronavirus HKU1 (PCR) Coronavirus 229E (PCR) COVID-19 PCR Coronavirus NL63 (PCR) Human Metapneumovir PCR Influenza A (H1) PCR Influ A (H1N1/09) PCR Influenza A (H3) PCR Influenza Type A (PCR) Influenza Type B (PCR) M. pneumoniae (PCR) Parainfluenza 1 (PCR) Parainfluenza 2 (PCR) Parainfluenza 3 (PCR) Parainfluenza 4 (PCR) RSV (PCR) Entero/Rhino (PCR) SARS-CoV-2 IgG Ab (Rapid) SARS-CoV-2 IgM Ab (Rapid) 03/02/20 03/02/20 03/02/20 17:50 17:57 20:14 WBC RBC Hgb Hct MCV MCH MCHC RDW Plt Count MPV Neut % (Auto) Lymph % (Auto) [place] % (Auto) Eos % (Auto) Baso % (Auto) Neut # (Auto) Lymph # (Auto) [place] # (Auto) Eos # (Auto) Baso # (Auto) ESR Specimen Source Right radial O2 % Ra ABG pH 7.41 ABG pCO2 46.8 H ABG pO2 57.4 L ABG HCO3 28.7 H ABG Total CO2 30.1 H ABG O2 Saturation 90 ABG Base Excess 3.9 H Jaime Test Acceptable Sodium Potassium Chloride Carbon Dioxide Anion Gap BUN Creatinine Estimated Creat Clear Estimated GFR Est GFR ( Amer) Glucose Lactate Calcium Magnesium Total Bilirubin AST ALT Alkaline Phosphatase C-Reactive Protein Total Protein Albumin Globulin Albumin/Globulin Ratio Vancomycin Trough Chlamy pneumoniae PCR Not detected Adenovirus (PCR) Not detected B. pertussis DNA (PCR) Not detected Coronavirus OC43 (PCR) Not detected Coronavirus HKU1 (PCR) Not detected Coronavirus 229E (PCR) Not detected COVID-19 PCR Detected A Coronavirus NL63 (PCR) Not detected Human Metapneumovir PCR Not detected Influenza A (H1) PCR Not detected Influ A (H1N1/09) PCR Not detected Influenza A (H3) PCR Not detected Influenza Type A (PCR) Not detected Influenza Type B (PCR) Not detected M. pneumoniae (PCR) Not detected Parainfluenza 1
[2020-03-09 13:30] LABS: Adenovirus F 40/41, stool Not Detected (NotDetected); Astrovirus Not Detected (NotDetected); Campylobacter Not Detected (NotDetected); Clostridium Difficile A/B, PCR Not Detected (NotDetected); Cryptosporidium Not Detected (NotDetected); Cyclospora Cayetanesis Not Detected (NotDetected); Entamoeba histolytica Not Detected (NotDetected); Enteroaggregative E coli Not Detected (NotDetected); Enteropathogenic E coli Not Detected (NotDetected); Enterotoxigenic E coli Not Detected (NotDetected); Giardia lamblia Not Detected (NotDetected); Norovirus Not Detected (NotDetected); Plesimonas Shigalloides, PCR Not Detected (NotDetected); Rotavirus A Not Detected (NotDetected); Salmonella, PCR Not Detected (NotDetected); Sapovirus Not Detected (NotDetected); Shiga-like toxin E coli Not Detected (NotDetected); Shigella Enterovasive E coli Not Detected (NotDetected); Vibrio Cholerae Not Detected (NotDetected); Vibrio, PCR Not Detected (NotDetected); Yersinia Entercolitica, PCR Not Detected (NotDetected)
--- NOTE | 2020-03-09 14:21 | PC.NURSE ---
[facility] notified of transfer @ [id number]
--- NOTE | 2020-03-09 14:43 | PC.NURSE ---
Report called to Samira @ [facility] at this time.
--- NOTE | 2020-03-09 15:37 | PC.NURSE ---
1520- Pt taken by wheelchair accompanied by [facility] staff in full PPE to MRI entrance of hospital w/ pt wearing surgical mask per hospital policy. Report and pt'd DC packet given to EMS.
== END 2020-03-09 15:20 | DRG 177 ==
LOC: ER 20:45 → ICU 22:07
PROVIDERS: Nurse Practitioner Family; Admitting Provider Emergency Medicine; Emergency Provider Emergency Medicine; PCP Emergency Medicine; Visit Provider Emergency Medicine
DX: U07.1 COVID-19 (principal); J12.89 Other viral pneumonia; J96.01 Acute respiratory failure with hypoxia; J96.02 Acute respiratory failure with hypercapnia; R65.10 Systemic inflammatory response syndrome (SIRS) of non-infectious origin without acute organ dysfunction; Z68.41 Body mass index [BMI] 40.0-44.9, adult; E66.9 Obesity, unspecified; D69.6 Thrombocytopenia, unspecified; J44.9 Chronic obstructive pulmonary disease, unspecified; Z79.899 Other long term (current) drug therapy; F25.9 Schizoaffective disorder, unspecified
CPT/HCPCS: 36415; 71045; 80048; 80053; 80165; 80202; 82803; 83605; 83735; 85025; 85651; 86140; 86328; 87040; 87506; 87581; 87633; 87798; 94761; 96365; 96367; 97162; 99285; J0456; J2543; J3370